=== PATIENT | male | born 1940 | race Caucasian/White ===

== ENCOUNTER → 2018-02-01 12:38 | Outpatient (CLI) | payer MEDICARE, OTHER ==
[2014-04-10 06:58] VITALS: BMI 33.0
[~2018-02-01 12:38] MED LIST: CATAPRES0.2 MG PO; COUMADIN5 MG PO; HUMALOG MIX 50/53 ML; LANTUS SOL100 UNIT/1 SC; LASIX40 MG PO; NORVASC5 MG PO; PRINIVIL10 MG PO; VITAMIN C500 MG PO; VITAMIN D31000 UNI2 PO; ZOCOR40 MG
== END | disposition home or self-care (01) ==
LOC: D.RAD 01-28 11:00 → D.CT 01-28 13:30 → D.RAD 01-28 14:00
DX: M54.5 Low back pain (principal)

== ENCOUNTER → 2019-06-06 07:13 | Day surgery (SDC) | payer MEDICARE, OTHER ==
[~2019-06-06] VITALS: Ht 375.9 cm; Wt 93.4 kg
[~2019-06-06 07:13] MED LIST changes: +AVAPRO150 MG PO; -CATAPRES0.2 MG PO; +CATAPRES0.3 MG PO; +COLCRYS0.6 MG PO; +DURICEF500 MG PO; +HYDROCHLOROTH12.5 M1 PO; +ISOSORBIDE MONO30 M1 PO; +LIPITOR40 MG PO; +METOPROLOL TART50 MG PO; +PLAVIX75 MG PO; +TEMAZEPAM30 MG PO; +TYLENOL W/CODEI1 TAB PO; +ULORIC80 MG PO; +XALATAN 0.0052.5 ML EACH EYE
[2019-06-06 07:50] LABS: HEMATOCRIT 41.7 % (42.0-54.0); HEMOGLOBIN 13.7 g/dL (13.5-17.5); MCH 29.9 pg (26.0-34.0); MCHC 32.9 g/dL (31.0-37.0); MEAN PLATELET VOLUME 8.8 fL (7.4-10.4); NEUTROPHILS 69.9 % (40-80); PLATELET COUNT 220 10x3/uL (130-400); RBC 4.58 10x6/uL (4.20-6.10); RDW 13.3 % (11.5-14.5); WBC 8.1 10x3/uL (4.8-10.8)
[2019-06-06 08:01] LABS: ANION GAP 16.1 mmol/L (8-16); CALCIUM 8.2 mg/dL (8.5-10.1); CARBON DIOXIDE 24.3 mmol/L (21.0-32.0); CREATININE - SERUM 1.4 mg/dL (0.6-1.3); POTASSIUM - SERUM 4.4 mmol/L (3.5-5.1)
[2019-06-06 08:52] VITALS: BP 173/88; Ht 375.9 cm; Wt 93.4 kg
[2019-06-06 09:53] LABS: APTT 34.2 SECONDS (22.8-39.4); INR 1.89 (0.85-1.17); PROTIME 21.4 SECONDS (11.6-15.0)
--- NOTE | 2019-06-06 12:57 | NUR ---
1210 ALL DC CRITERIA MET. TAKEN OUT VIA W/C AND ASSISTED TO CAR WITH DAUGHTER ADVISED TO CALL OR COME BACK IF ANY PROBLEMS.
--- NOTE | 2019-06-07 16:29 | OP ---
PATIENT NAME: REMY JAMES MEDICAL RECORD: [id number] :39 LOCATION:[facility] ADMISSION DATE: SURGEON: LUL JACQUES DO DATE OF OPERATION: 06/06/2019 PROCEDURE PERFORMED: Left index finger proximal interphalangeal joint, irrigation and debridement. 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 INDICATIONS: Mr. James is an 79-year-old male who presented to my office yesterday having months of left index PIP joint pain and tenderness and loss of mobility. It was red and swollen yesterday and he could barely move it. I informed him we could do an I&D and take cultures just to be sure it was not infected, but it had been going on for months. I did not suspect it was, but we would find out. I informed him of the risks including infection, bleeding, loss of use of that index finger and PIP joint, need for further surgery, damage to the digital nerves, losing feeling in his finger and even . He signed the consent. SURGEON: Lul Jacques DO DESCRIPTION OF PROCEDURE: The patient was taken to the operative suite, laid in supine position, given 2 grams of Ancef. He was given TIVA. I then injected the base of the left index finger. After a timeout was performed, everyone was in agreement with the correct side, site, patient and procedure. Base of the index finger with 0.25% Marcaine without epinephrine and injected 1.5 mL in each side. We then prepped and draped the left hand and made an incision. This was painful for him, so I injected 3 mL on each side. The ulnar and radial side of the base of the index finger with 0.25% Marcaine, this anesthetized the finger well. We then opened up the joint down to the extensor tendon and there were large tophi right under the skin. I then did a thorough debridement of the PIP joint, in the joint and on the ulnar and radial sides of the joint getting as much of the tophi out as I possibly could and sent it off for identification, it was white in nature and appeared to be tophi. The site was then irrigated thoroughly and debrided with a rongeur and a [place] as well as pickups. Prior to doing this, I did put a finger tourniquet on from the distal tip and rolled it down to the base and it was on for 30 minutes. This was then removed and then a finger was irrigated and closed by Orestes Virgen, certified surgical speech pathologist assistant with 4-0 nylon in a horizontal mattress fashion. He was then taken to his preoperative room as he did not undergo full anesthesia in stable condition. The site was dressed with Adaptic, 4 x 4s and Kerlix and then a Coban lightly wrapped on the finger. BLOOD LOSS: Minimal. COMPLICATIONS: None. TRANSINT:[id number] Voice Confirmation ID: [id number] DOCUMENT ID: [id number] OPERATIVE REPORT [id number] REMY JAMES,LUL Boyle DO at 1629 CC: [id number] DICTATION DATE: 06/06/19 1049 MONOGRAM OPERATOR: 06/06/19 1129 [facility] 06/06/19 [address] [place] [address]
== END | disposition home or self-care (01) ==
LOC: D.OPS 07:13
PROVIDERS: Anesthesiology; ATTEND Orthopaedic Surgery
DX: M00.9 Pyogenic arthritis, unspecified (principal); E11.9 Type 2 diabetes mellitus without complications; I10 Essential (primary) hypertension; Z95.0 Presence of cardiac pacemaker

== ENCOUNTER 2019-11-01 15:48 | Inpatient (IN) | payer MEDICARE, OTHER ==
[~2019-11-01] VITALS: Ht 172.7 cm; Wt 90.7 kg
--- NOTE | ~2019-11-01 | HEMODYNAMI ---
PATIENT:REMY JAMES MEDICAL RECORD: [id number] : 39 LOCATION:[facility] D.2210 ADMISSION DATE: 11/01/19 Generatedon:11/03/201916:33 Patient name: REMY JAMES Patient #: [id number] SSN: : 1940 Date of study: 11/03/2019 Page: Of Hemodynamic Procedure Report Patient Data Patient Demographics Procedure consent was obtained First Name: REMY Gender: Male Last Name: ERIKA : 1940 Patient #: [id number] Age: 79 year(s) Race: Unknown Additional ID: [id number] Contact details [address]: [address] [place] [address] State: [place] City: [place] Zip code: [address] Past Medical History Allergies: No known allergies Admission Admission Data Admission Date: 11/01/2019 Admission Time: 15:48 Room #: .[facility] Height (in.): 68 BSA: 2.04 (m2) Height (cm.): 172.72 BMI: 30.26 (kg/m2) Weight (lbs.): 199 Weight (kg.): 90.26 Procedure Procedure Types Cath Procedure Peripheral Cath Diagnostic Procedure Live Hanger Peripheral Procedures Abd/Extremity Extremities Left Lower Ext Arterio Procedure Description Procedure Date Procedure Date: 11/03/2019 Procedure Start Time: 15:15 Procedure Staff Name Function Charlie Sherwood MD Performing Physician Lorin Blair RT Automatic Casting Machine Operator Bill MIDDLETON RN Nurse BRIDGET KAUFFMAN RT Scrub Procedure Data Cath Procedure Fluoroscopy Diagnostic fluoroscopy Total fluoroscopy Time: time: 12.3 min 12.3 min Diagnostic fluoroscopy Total fluoroscopy dose: 113 dose: 113 mGy mGy Contrast Material Contrast Material Type Amount (ml) Isovue 300 15 Diagnostic catheters Device Type Used For End Catheter Placement DIAGNOSTIC IMT 5Fr Catheter ([id number]) Procedure Medications Medication Administration Route Dosage Fentanyl I.V. 50 mcg Versed I.V. 1 mg Lidocaine 1% added to field 20 Heparin Flush Bag added to field 2 bags (1000units/500ml NS) Heparin Flush Bag added to field 1 bags (1000units/500ml NS) Fentanyl I.V. 25 mcg Versed I.V. 0.5 mg Heparin Bolus I.V. 5000 units Nitroglycerin IC/IA I.A. 300 mcg Fentanyl I.V. 25 mcg Versed I.V. 0.5 mg Fentanyl I.V. 25 mcg Versed I.V. 0.5 mg Fentanyl I.V. 25 mcg Versed I.V. 0.5 mg Hemodynamics Rest BSA: 2.04 (m2) O2 Consumption: Estimated: 234.91 (ml/min) O2 Consumption indexed : Estimated:115.15 (ml/min/m) Heart Rate: 72 (bpm) Snapshots Pre Cath Intra NCS Post Cath Vital Signs Time Heart Resp SPO2 etCO2 NIBP (mmHg) Rhythm Pain Sedation Rate (ipm) (%) (mmHg) Status Level (bpm) 15:01:46 75 19 100 Measuring NSR 0 (11) 9(A) , No pain 15:02:17 73 19 100 197/76(145) NSR 0 (11) 9(A) , No pain 15:06:54 71 22 99 20.9 192/75(142) NSR 0 (11) 9(A) , No pain 15:11:28 69 20 99 11.2 188/74(128) NSR 0 (11) 9(A) , No pain 15:15:58 69 10 98 26.9 174/67(130) NSR 0 (11) 8(A) , No pain 15:20:29 69 15 96 24.6 162/68(115) NSR 0 (11) 8(A) , No pain 15:24:53 69 15 98 0 162/65(124) NSR 0 (11) 9(A) , No pain 15:29:52 69 16 99 12.7 Measuring NSR 0 (11) 8(A) , No pain 15:30:27 69 11 98 10.4 192/66(126) NSR 0 (11) 8(A) , No pain 15:34:51 69 11 94 27.6 154/62(121) NSR 0 (11) 8(A) , No pain 15:39:15 69 12 99 23.9 155/65(106) NSR 0 (11) 8(A) , No pain 15:43:35 69 26 99 22.4 176/82(130) NSR 0 (11) 8(A) , No pain 15:47:59 69 10 98 26.1 173/73(113) NSR 0 (11) 8(A) , No pain 15:52:18 71 13 98 25.4 149/71(108) NSR 0 (11) 8(A) , No pain 15:56:38 70 12 99 23.1 163/68(111) NSR 0 (11) 8(A) , No pain 16:01:04 69 10 99 20.9 178/72(115) NSR 0 (11) 9(A) , No pain 16:05:32 100 26.1 168/70(134) NSR 0 (11) 8(A) , No pain 16:09:59 71 11 100 26.1 171/69(113) NSR 0 (11) 8(A) , No pain 16:14:58 69 13 100 26.1 Measuring NSR 0 (11) 8(A) , No pain 16:15:28 69 13 100 11.9 178/68(123) NSR 0 (11) 8(A) , No pain 16:19:59 69 14 100 31.3 194/74(130) NSR 0 (11) 8(A) , No pain 16:24:31 69 9 99 27.6 182/69(134) NSR 0 (11) 8(A) , No pain 16:29:01 69 15 100 31.3 186/80(147) NSR 0 (11) 8(A) , No pain Medications Time Medication Route Dose Verified Delivered Reason Notes Effectiveness by by 15:13:22 Fentanyl I.V. 50 Charlie Vinesr for sedation mcg Kaela MIDDLETON MD RN 15:13:32 Versed I.V. 1 mg Charlie Khan for sedation Kaela MIDDLETON MD RN 15:13:48 Lidocaine 1% added 20ml Charlie Khan for local to vial Kaela MIDDLETON anesthetic field MD ALVARENGA 15:13:57 Heparin Flush added 2 Charlie Khan used for Bag to bags Kaela MIDDLETON procedure (1000units/500ml field ROBERTS RN NS) 15:14:02 Heparin Flush added 1 Charlie Guerra used for Bag to bags Kaela Sherwood procedure (1000units/500ml field MD ROBERTS NS) 15:28:26 Fentanyl I.V. 25 Charlie Guerra for sedation mcg Kaela Sherwood MD, MD 15:28:30 Versed I.V. 0.5 Charlie Guerra for sedation mg Kaela Sherwood MD, MD 15:33:38 Heparin Bolus I.V. 5000 Charlie Khan for units Kaela huynh MD RN 15:40:41 Nitroglycerin I.A. 300 Charlie Guerra for IC/IA mcg Kaela chung MD, MD 15:43:46 Fentanyl I.V. 25 Charlie Khan for sedation mcg Kaela MIDDLETON MD, RN 15:43:50 Versed I.V. 0.5 Charlie Khan for sedation mg Kaela MIDDLETON MD RN 16:03:21 Fentanyl I.V. 25 Charlie Khan for sedation mcg Kaela MIDDLETON MD, RN 16:03:24 Versed I.V. 0.5 Charlie Khan for sedation mg Kaela MIDDLETON MD, RN 16:17:26 Fentanyl I.V. 25 Charlie Khan for sedation mcg Kaela MIDDLETON MD, RN 16:17:30 Versed I.V. 0.5 Charlie Khan for sedation mg Kaela MIDDLETON MD rand butter Log Time Note 14:06:08 Patient Height : 68 inches 14:06:13 Patient Weight : 199 lbs 14:58:41 Time tracking: Regular hours (M-F 7:00 - 5:00) 14:59:34 Plan of Care:Hemodynamics will remain stable., Cardiac rhythm will remain stable., Comfort level will be maintained., Respiratory function will remain adequate., Patient/ family verbilizes understanding of procedure., Procedure tolerated without complication., Recovers from procedure without complications.. 14:59:47 Patient received from Med/Surg to IR Alert and oriented. Tansferred to table in Supine position. 14:59:52 Signed procedure consent form obtained from patient. 14:59:55 ECG and BP/O2 sat monitors applied to patient. 14:59:56 Vital chart was started 14:59:57 Baseline sample Acquired. 15:00:00 Full Disclosure recording started 15:00:01 - 15:00:06 H&P Date Dictated: 11/03/2019 Within 30 days and on chart.. 15:00:14 Pre-procedure instructions explained to patient. 15:00:14 Pre-op teaching completed and patient verbalized understanding. 15:00:16 Family in waiting room. 15:00:27 Patient allergic to No known allergies 15:00:32 Patient NPO since Midnight. 15:00:40 Is the patient allergic to Iodine/contrast media? No. 15:00:43 Is patient on blood thinner?No 15:00:46 Patient diabetic? Yes. 15:00:50 - 15:00:51 ----Pre-sedation anethsthesia assessment.---- 15:00:56 Previous problem with sedation/anesthesia? No ? 15:00:59 Snore? Yes 15:01:05 Sleep apnea? No 15:01:08 Deviated septum? No 15:01:10 Opens mouth fully? Yes 15:01:12 Sticks out tongue? 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 No ? 15:01:34 Pre procedure: right dorsailis pedis pulse Doppler 15:01:37 Pre procedure: left dorsailis pedis pulse Doppler 15:01:41 Pre procedure: right posterior tibial pulse Doppler 15:01:46 Pre procedure: left posterior tibial pulse Doppler 15:02:09 Right groin area was prepped with chlora-prep and draped in sterile fashion 15:02:22 4) 15-29 Severley reduced kidney function. 15:03:17 Maximum allowable contrast dose (3.7 X eGFR X 0.75)66 ml. 15:03:30 Fire Safety Assessment: A--An alcohol-based skin anteseptic being used preoperatively., C--Open oxygen or nitrous oxide is being used. 15:09:42 STOPCOCK 3-Way Large Bore ([id number]) opened to sterile field. 15:09:56 TUBING Contrast Injection High Pressure (YUU242J) opened to sterile field. 15:10:08 BENTSON 145cm wire (G81482) opened to sterile field. 15:10:14 Micropuncture VSI 4FR kit opened to sterile field. 15:10:34 SHEATH 5FR Cisco (MAA411) opened to sterile field. 15:10:41 Use device set IR Diagnostic 15:10:43 Tegaderm 4 x 4 (1626W) opened to sterile field. 15:10:44 Sterile Angiographic Pack opened to sterile field. 15:10:45 Bag Decanter (2002) opened to sterile field. 15:10:53 - 15:10:58 Physician arrived 15:10:59 --------ALL STOP TIME OUT------ 15:10:59 Final Timeout: patient, procedure, and site verified with staff and physician. All members of the team are in agreement. 15:13:22 Fentanyl 50 mcg I.V. was administered by Bill MIDDLETON RN; for sedation; Verbal order read back and verified. 15:13:32 Versed 1 mg I.V. was administered by Bill MIDDLETON RN; for sedation; Verbal order read back and verified. 15:13:48 Lidocaine 1% 20ml vial added to field was administered by Bill Solomon RN; for local anesthetic; Verbal order read back and verified. 15:13:57 Heparin Flush Bag (1000units/500ml NS) 2 bags added to field was administered by Bill MIDDLETON RN; used for procedure; Verbal order read back and verified. 15:14:02 Heparin Flush Bag (1000units/500ml NS) 1 bags added to field was administered by Charlie Sherwood MD; used for procedure; Verbal order read back and verified. 15:14:57 Procedure started. 15:15:01 Local anesthetic to right femoral artery with Lidocaine 1% by Charlie Sherwood MD.INITIAL ACCESS ONLY 15:17:51 A DIAGNOSTIC IMT 5Fr Catheter ([id number]) was advanced over the wire an d used for . 15:20:38 SHEATH 6FR Destination (RSR01) opened to sterile field. 15:20:47 PENDLETON 260 wire (Q21014) opened to sterile field. 15:21:58 ROADRUNNER .035 260 glide wire (V95418) opened to sterile field. 15:21:59 CXI SUPPORT .035 135 CM STR catheter (F11652) opened to sterile field. 15:28:26 Fentanyl 25 mcg I.V. was administered by Charlie Sherwood MD; for sedation; Verbal order read back and verified. 15:28:30 Versed 0.5 mg I.V. was administered by Charlie Sherwood MD; for sedation; Verbal order read back and verified. 15:28:49 Baseline sample Acquired. 15:33:38 Heparin Bolus 5000 units I.V. was administered by Bill MIDDLETON RN; fo r anticoagulation; Verbal order read back and verified. 15:38:40 INFLATOR BasixTOUCH (FB9936) opened to sterile field. 15:40:10 CHOICE PT Extra Support J 300cm guide wire ([id number]) opened to steril e field. 15:40:41 Nitroglycerin IC/IA 300 mcg I.A. was administered by Charlie Sherwood MD; for vasodilation; Verbal order read back and verified. 15:41:20 Inflate balloon Inflation number: 1 AOCROSS ELITE 3.5x3.0X210 ([id number]) was prepped and advanced across the Undefined1 , then inflated . 15:43:46 Fentanyl 25 mcg I.V. was administered by Bill MIDDLETON RN; for sedation; Verbal order read back and verified. 15:43:50 Versed 0.5 mg I.V. was administered by Bill MIDDLETON RN; for sedation; Verbal order read back and verified. 15:46:50 Inflate balloon Inflation number: 2 A CHOCOLATE 4.0 x 80 x 135 balloon ([id number]) was prepped and advanced across the Undefined1 , then inflated . 15:50:15 COPILOT Valve Control (1216761) opened to sterile field. 16:03:21 Fentanyl 25 mcg I.V. was administered by Bill MIDDLETON RN; for sedation; Verbal order read back and verified. 16:03:22 Inflate balloon Inflation number: 3 A NANOCROSS ELITE 5MM X 200 X 150 ([id number]) was prepped and advanced across the Undefined1 , then inflated . 16:03:24 Versed 0.5 mg I.V. was administered by Bill MIDDLETON RN; for sedation; Verbal order read back and verified. 16:05:44 Inflate balloon Inflation number: 4 A NANOCROSS ELITE 6 X 150 ([id number]) was prepped and advanced across the Undefined1 , then inflated . 16:11:34 EVERFLEX 6 x 150 Stent ([id number]) was deployed across Undefined2 . 16:12:09 PERCLOSE Proglide 6FR ( 13599368) opened to sterile field. 16:17:26 Fentanyl 25 mcg I.V. was administered by Bill MIDDLETON RN; for sedation; Verbal order read back and verified. 16:17:30 Versed 0.5 mg I.V. was administered by Bill MIDDLETON RN; for sedation; Verbal order read back and verified. 16:22:28 Procedure ended.(Physican Out) 16:30:22 Fluoroscopy time 12.30 minutes. 16:30:33 Fluoroscopy dose: 113 mGy 16:30:33 Flurop Dose total: 113 16:30:44 Contrast amount:Isovue 300 15ml. 16:30:46 Procedure and supply charges have been captured, reviewed, submitted an d are correct. 16:32:55 Vital chart was stopped 16:32:59 Report given to Med/Surg. Intervention Summary Intervention Notes Time ActionType Lesion and Equipment Used Action# Pressure Duration Attributes 15:41:20 Inflate Undefined1 NANOCROSS ELITE 1 0 00:00 balloon 3.0-2.5X210 ([id number]) 15:46:50 Inflate Undefined1 CHOCOLATE 4.0 x 2 0 00:00 balloon 80 x 135 balloon ([id number]) 16:03:22 Inflate Undefined1 NANOCROSS ELITE 3 0 00:00 balloon 4MM X 120 X 150 ([id number]) 16:05:44 Inflate Undefined1 NANOCROSS ELITE 3 4 0 00:00 balloon X 150 ([id number]) 16:11:34 Deploy self Undefined2 EVERFLEX 6 x 150 1 expanding Stent stent ([id number]) Device Usage Item Name Manufacture Quantity Catalog Number Hospital Part Curr ent Minimal Lot# / Charge Number Stock Stock Serial# Code STOPCOCK 3-Way Cook Medical 1 [id number] 1300 9996 45 5 Large Bore ([id number]) TUBING Contrast Merit 1 [id number] 570270 825072 3016 97 5 Injection High Medical Pressure (ALL091P) BENTSON 145cm [employer] 1 M90076 405737 6276 44 5 wire (Y86605) Micropuncture VSI VSI VASCULAR 1 7266V 658695 6138 37 5 4FR kit SOLUTIONS SHEATH 5FR Terumo 1 ZJH844 858222 458959 1142 61 5 Cisco (HXC872) Tegaderm 4 x 4 3M 1 1626W 546031 662497 3022 51 5 (1626W) Sterile Cardinal 1 [id number] 610191 1573 64 5 Angiographic Pack Health Bag Decanter Microtek 1 2001S 798701 09028 9839 07 5 (2001S) [place] [employer] DIAGNOSTIC IMT [place] 1 [id number] 287249 484255 9947 3 5 [id number] 5Fr Catheter Scientific ([id number]) SHEATH 6FR Terumo 1 RSR01 308342 37421 9994 74 5 Destination (RSR01) PENDLETON 260 wire [employer] 1 J98241 050326 49687 9994 00 5 ([id number]) ROADRUNNER .035 [employer] 1 H25539 705533 139544 6269 27 5 [id number] 260 glide wire (F45935) CXI SUPPORT .035 [employer] 1 W85255 745293 353025 0773 54 5 [id number] 135 CM STR catheter (S49826) INFLATOR Merit 1 QF0085 999628 440434 8022 84 5 EQUIP Advantage (UJ6567) CHOICE PT Extra [place] 1 [id number] 116621 667561 6089 72 5 Support J 300cm Scientific guide wire ([id number]) NANOCROSS ELITE Medtronic 1 [id number] 957009 1228 94 1 3.0-2.5X210 ([id number]) CHOCOLATE 4.0 x Medtronic 1 [id number] O 284760 007946 4780 91 5 80 x 135 balloon TW ([id number]) COPILOT Valve Hernandez 1 4152125 331004 243098 0438 21 5 Control (4338980) Vascular NANOCROSS ELITE Medtronic 1 [id number] 857406 3170 89 1 4MM X 120 X 150 ([id number]) NANOCROSS ELITE 3 Medtronic 1 [id number] 571910 12824 9999 93 1 X 150 ([id number]) EVERFLEX 6 x 150 Medtronic 1 [id number] 403933 737271 2732 95 5 [id number] Stent [id number] ([id number]) PERCLOSE Proglide Hernandez 1 65808-647 893720 737141 9203 92 5 6FR ( [id number]) Vascular Signature Audit Mason Stage Time Signature Unsigned Intra-Procedure 11/03/2019 Lorin Blair 4:33:19 PM RT(R) [facility] [address] [place] [address]
[~2019-11-01 15:48] MED LIST changes: -COUMADIN5 MG PO; +WARFARIN SODIU2.5 MG PO
[2019-11-01 17:57] VITALS: BP 184/82
[2019-11-01 18:23] LABS: BASOPHILS 0.4 % (0-2); EOSINOPHILS 3.3 % (0-7); HEMATOCRIT 39.1 % (42.0-54.0); HEMOGLOBIN 12.6 g/dL (13.5-17.5); LYMPHOCYTES 19.5 % (15-50); MCH 30.5 pg (26.0-34.0); MCHC 32.2 g/dL (31.0-37.0); MCV 94.7 fL (80.0-100.0); MEAN PLATELET VOLUME 9.4 fL (7.4-10.4); MONOCYTES 12.4 % (2-11); NEUTROPHILS 64.4 % (40-80); RBC 4.13 10x6/uL (4.20-6.10); RDW 13.3 % (11.5-14.5); WBC 5.5 10x3/uL (4.8-10.8)
[2019-11-01 18:34] LABS: ANION GAP 5.9 mmol/L (8-16); CALCIUM 8.5 mg/dL (8.5-10.1); CARBON DIOXIDE 31.4 mmol/L (21.0-32.0); CREATININE - SERUM 2.5 mg/dL (0.6-1.3); POTASSIUM - SERUM 4.3 mmol/L (3.5-5.1)
[2019-11-01 18:36] LABS: PLATELET COUNT 169 10x3/uL (130-400)
[2019-11-01 18:41] LABS: ALBUMIN 2.9 g/dL (3.4-5.0); BILIRUBIN - TOTAL 0.33 mg/dL (0.2-1.3); PROTEIN - SERUM 5.9 g/dL (6.4-8.2); URIC ACID 3.6 mg/dL (2.6-7.2)
[2019-11-01 18:44] LABS: INR 1.22 (0.85-1.17); PROTIME 15.3 SECONDS (11.6-15.0)
[2019-11-01 20:00] VITALS: BP 215/82
[2019-11-02 01:06] LABS: NITRITE NEGATIVE (NEGATIVE)
[2019-11-02 01:07] LABS: BILIRUBIN NEGATIVE (NEGATIVE); KETONE NEGATIVE (NEGATIVE); UROBILINOGEN NORMAL (NORMAL)
[2019-11-02 04:00] VITALS: BP 182/65
--- NOTE | 2019-11-02 07:58 | NUR ---
PT RESTING IN BED. RESP EVEN AND UNLABORED. DENIES PAIN AT THIS TIME. DISCUSSED POSSIBLE PROCEDURE THIS AM AND NEED TO BE NPO. PT VOICES UNDERSTANDING. INFORMED PT THAT STAFF WOULD NOTIFY HIM WITH ANY CHANGES IN PROCEDURE. PT VOICES UNDERSTANDING. IV TO LEFT FOREARM WITH NS @ 75ML/HR INFUSING VIA PUMP. SITE WITHOUT REDNESS OR EDEMA. DENIES FURTHER NEEDS AT THIS TIME. CL WITHIN REACH. ENCOURAGED TO CALL WITH NEEDS. CONTINUE POC
--- NOTE | 2019-11-02 08:15 | NUR ---
STAFF WAS CONTACTED BY KANE AND INFORMED PROCEDURE WAS ON HOLD DUE TO USE OF PLAVIX AND COUMADIN. VOICED TO RESTART DIET, HOLDING PLAVIX AND COUMADIN UNTIL FURTHER NOTICE
[2019-11-02 09:48] VITALS: BP 207/78
[2019-11-02 10:17] LABS: ANION GAP 8.4 mmol/L (8-16); CALCIUM 8.6 mg/dL (8.5-10.1); CARBON DIOXIDE 28.2 mmol/L (21.0-32.0); CREATININE - SERUM 2.4 mg/dL (0.6-1.3); PHOSPHOROUS 3.2 mg/dL (2.5-4.9); POTASSIUM - SERUM 4.6 mmol/L (3.5-5.1)
[2019-11-02 10:19] LABS: INR 1.18 (0.85-1.17); PROTIME 14.9 SECONDS (11.6-15.0)
[2019-11-02 10:20] LABS: APTT 28.5 SECONDS (22.8-39.4)
[2019-11-02 10:23] LABS: BASOPHILS 0.6 % (0-2); EOSINOPHILS 3.5 % (0-7); HEMATOCRIT 42.2 % (42.0-54.0); IMMATURE GRANULOCYTES 0.1 % (0-5); LYMPHOCYTES 17.9 % (15-50); MCH 30.9 pg (26.0-34.0); MCHC 33.2 g/dL (31.0-37.0); MCV 93.2 fL (80.0-100.0); MEAN PLATELET VOLUME 9.8 fL (7.4-10.4); MONOCYTES 11.5 % (2-11); NEUTROPHILS 66.4 % (40-80); PLATELET COUNT 174 10x3/uL (130-400); RBC 4.53 10x6/uL (4.20-6.10); RDW 13.2 % (11.5-14.5)
[2019-11-02 10:29] LABS: WBC 6.9 10x3/uL (4.8-10.8)
[2019-11-02 12:49] VITALS: BP 160/78
[2019-11-02 12:58] VITALS: BP 212/74
[2019-11-02 13:01] VITALS: Ht 172.7 cm; Wt 90.7 kg
[2019-11-02 13:02] LABS: HEMATOCRIT 40.3 % (42.0-54.0); HEMOGLOBIN 13.4 g/dL (13.5-17.5); MCH 31.1 pg (26.0-34.0); MCHC 33.3 g/dL (31.0-37.0); MCV 93.5 fL (80.0-100.0); MEAN PLATELET VOLUME 9.7 fL (7.4-10.4); RBC 4.31 10x6/uL (4.20-6.10); RDW 13.2 % (11.5-14.5); WBC 6.8 10x3/uL (4.8-10.8)
[2019-11-02 13:16] LABS: APTT 29.8 SECONDS (22.8-39.4); INR 1.3 (0.85-1.17); PROTIME 16.1 SECONDS (11.6-15.0)
--- NOTE | 2019-11-02 14:10 | NUR ---
IV SITED TO RIGHT WRIST. 20G X 1 STICK, GOOD BLOOD RETURN, EASILY FLUSHED. PT LIZZY WELL
[2019-11-02 17:23] VITALS: BP 160/69
[2019-11-02 20:00] VITALS: BP 107/65
[2019-11-03] VITALS (9 sets, daily range): BP systolic 156–203; BP diastolic 64–76
--- NOTE | 2019-11-03 04:12 | NUR ---
I have reviewed this patient and I concur with the Shift Assessment completed by the Licensed Practical Nurse today this shift.
[2019-11-03 04:43] LABS: BASOPHILS 0.3 % (0-2); EOSINOPHILS 2.9 % (0-7); HEMATOCRIT 39.7 % (42.0-54.0); HEMOGLOBIN 13.1 g/dL (13.5-17.5); IMMATURE GRANULOCYTES 0.1 % (0-5); LYMPHOCYTES 21.2 % (15-50); MCH 30.3 pg (26.0-34.0); MCV 91.7 fL (80.0-100.0); MEAN PLATELET VOLUME 9.7 fL (7.4-10.4); MONOCYTES 10.4 % (2-11); NEUTROPHILS 65.1 % (40-80); PLATELET COUNT 178 10x3/uL (130-400); RBC 4.33 10x6/uL (4.20-6.10); RDW 13.2 % (11.5-14.5)
[2019-11-03 04:58] LABS: INR 1.17 (0.85-1.17); PROTIME 14.9 SECONDS (11.6-15.0)
[2019-11-03 05:01] LABS: APTT 41.1 SECONDS (22.8-39.4)
[2019-11-03 05:08] LABS: ANION GAP 12.4 mmol/L (8-16); CALCIUM 8.3 mg/dL (8.5-10.1); CARBON DIOXIDE 24.6 mmol/L (21.0-32.0); CREATININE - SERUM 2.7 mg/dL (0.6-1.3); MAGNESIUM - SERUM 1.9 mg/dL (1.8-2.4); PHOSPHOROUS 3.4 mg/dL (2.5-4.9)
--- NOTE | 2019-11-03 07:00 | NUR ---
A&O RESTING IN BED WITH EYES OPEN. NO C/O PAIN. NO S/S OF ACUTE DISTRESS NOTED. IV TO LEFT WRIST, HEPARIN DRIP @ 9. IV TO RIGHT HAND, NS INFUSING @ KVO. SITES PATENT WITHOUT REDNESS OR SWELLING. NPO FOR CT SCAN TODAY. LEFT FOOT RED. SCABS/SORES TO LEFT FOOT. DENIES ANY NEEDS AT THIS TIME. CALL LIGHT IN REACH. WILL CONTINUE TO MONITOR.
--- NOTE | 2019-11-03 13:33 | NUR ---
Nutrition follow-up: Pt reports he has had DMT2 for 20 years. Pt states glucose usually under better control. Pt vey unhappy at this time 2/2 NPO; shaking from low BS he states. RDN provided pt with printed diet information. RDN will be available for questions if needed. Following.
--- NOTE | 2019-11-03 14:05 | NUR ---
PATIENT LYING IN BED WITH FAMILY AT BEDSIDE. DENIES PAIN OR NEEDS.
--- NOTE | 2019-11-03 18:09 | NUR ---
PATIENT'S APTT IS 173. PUT HEPARIN ON HOLD FOR 60 MINUTES AND THEN WILL TURN DOWN FROM 9 TO 6.
--- NOTE | 2019-11-03 18:20 | NUR ---
RESTING IN BED WITH EYES OPEN. NO C/O PAIN. NO S/S OF ACUTE DISTRESS NOTED. DENIES ANY NEEDS AT THIS TIME. CALL LIGHT IN REACH. WILL CONTINUE TO MONITOR.
--- NOTE | 2019-11-04 00:23 | NUR ---
I have reviewed this patient and I concur with the Shift Assessment completed by the Licensed Practical Nurse today this shift.
[2019-11-04 04:00] VITALS: BP 160/60
[2019-11-04 06:18] LABS: BASOPHILS 0.2 % (0-2); EOSINOPHILS 0 % (0-7); HEMATOCRIT 37.1 % (42.0-54.0); HEMOGLOBIN 11.9 g/dL (13.5-17.5); IMMATURE GRANULOCYTES 0.2 % (0-5); LYMPHOCYTES 10.2 % (15-50); MCHC 32.1 g/dL (31.0-37.0); MCV 93.5 fL (80.0-100.0); MEAN PLATELET VOLUME 9.5 fL (7.4-10.4); MONOCYTES 9.1 % (2-11); NEUTROPHILS 80.3 % (40-80); PLATELET COUNT 167 10x3/uL (130-400); RBC 3.97 10x6/uL (4.20-6.10); RDW 13.7 % (11.5-14.5); WBC 8.2 10x3/uL (4.8-10.8)
[2019-11-04 07:02] LABS: ANION GAP 11.8 mmol/L (8-16); CALCIUM 8.5 mg/dL (8.5-10.1); CARBON DIOXIDE 23.4 mmol/L (21.0-32.0); CREATININE - SERUM 2.6 mg/dL (0.6-1.3); MAGNESIUM - SERUM 1.9 mg/dL (1.8-2.4); PHOSPHOROUS 3.3 mg/dL (2.5-4.9); POTASSIUM - SERUM 4.2 mmol/L (3.5-5.1)
[2019-11-04 09:30] VITALS: BP 159/55
--- NOTE | 2019-11-04 10:44 | NUR ---
I have reviewed this patient and I concur with the Shift Assessment completed by the Licensed Practical Nurse today this shift.
[2019-11-04 13:23] VITALS: BP 136/49
[2019-11-04 16:23] VITALS: BP 94/55
[2019-11-04 20:00] VITALS: BP 172/54
[2019-11-05 00:10] VITALS: BP 158/52
--- NOTE | 2019-11-05 02:39 | NUR ---
I have reviewed this patient and I concur with the Shift Assessment completed by the Licensed Practical Nurse today this shift.
[2019-11-05 03:18] LABS: BASOPHILS 0.1 % (0-2); EOSINOPHILS 1.6 % (0-7); HEMATOCRIT 34.3 % (42.0-54.0); HEMOGLOBIN 11.1 g/dL (13.5-17.5); IMMATURE GRANULOCYTES 0.1 % (0-5); LYMPHOCYTES 17.3 % (15-50); MCH 30.5 pg (26.0-34.0); MCHC 32.4 g/dL (31.0-37.0); MCV 94.2 fL (80.0-100.0); MEAN PLATELET VOLUME 9.5 fL (7.4-10.4); MONOCYTES 11.2 % (2-11); NEUTROPHILS 69.7 % (40-80); PLATELET COUNT 142 10x3/uL (130-400); RBC 3.64 10x6/uL (4.20-6.10); RDW 13.7 % (11.5-14.5); WBC 6.9 10x3/uL (4.8-10.8)
[2019-11-05 03:30] LABS: ANION GAP 8.9 mmol/L (8-16); CALCIUM 8.5 mg/dL (8.5-10.1); CARBON DIOXIDE 24.1 mmol/L (21.0-32.0); CREATININE - SERUM 2.5 mg/dL (0.6-1.3); MAGNESIUM - SERUM 1.9 mg/dL (1.8-2.4); PHOSPHOROUS 3.3 mg/dL (2.5-4.9)
[2019-11-05 04:30] VITALS: BP 166/62
--- NOTE | 2019-11-05 07:58 | NUR ---
RESTING IN BED, NO DISTRESS NOTED, CONFUSED, C/O PAIN, BED ALARM ON
[2019-11-05 09:49] VITALS: BP 178/60
--- NOTE | 2019-11-05 11:50 | NUR ---
ADJUSTED HEPARIN PER PROTOCOL
[2019-11-05 12:15] VITALS: BP 149/53
[2019-11-05 17:21] VITALS: BP 164/66
--- NOTE | 2019-11-05 18:45 | NUR ---
BOLUS OF HEPARIN GIVEN AND RATE INCREASED BY 200, WILL REDRAW LABS AT [id number]
[2019-11-05 20:00] VITALS: BP 153/51
[2019-11-06 00:05] VITALS: BP 176/57
[2019-11-06 02:35] LABS: BASOPHILS 0.3 % (0-2); EOSINOPHILS 2.2 % (0-7); HEMATOCRIT 33.5 % (42.0-54.0); HEMOGLOBIN 10.6 g/dL (13.5-17.5); IMMATURE GRANULOCYTES 0.3 % (0-5); LYMPHOCYTES 12.5 % (15-50); MCH 30.6 pg (26.0-34.0); MCHC 31.6 g/dL (31.0-37.0); MEAN PLATELET VOLUME 9.7 fL (7.4-10.4); MONOCYTES 11.2 % (2-11); NEUTROPHILS 73.5 % (40-80); PLATELET COUNT 149 10x3/uL (130-400); RBC 3.46 10x6/uL (4.20-6.10); RDW 13.6 % (11.5-14.5)
[2019-11-06 02:36] LABS: MCV 96.8 fL (80.0-100.0); WBC 8.8 10x3/uL (4.8-10.8)
[2019-11-06 02:39] LABS: INR 1.25 (0.85-1.17); PROTIME 15.6 SECONDS (11.6-15.0)
[2019-11-06 02:46] LABS: APTT 103.1 SECONDS (22.8-39.4)
[2019-11-06 02:50] LABS: CALCIUM 7.7 mg/dL (8.5-10.1); CARBON DIOXIDE 24.6 mmol/L (21.0-32.0); CREATININE - SERUM 2.9 mg/dL (0.6-1.3); MAGNESIUM - SERUM 1.7 mg/dL (1.8-2.4); PHOSPHOROUS 3.1 mg/dL (2.5-4.9); POTASSIUM - SERUM 3.6 mmol/L (3.5-5.1)
[2019-11-06 04:30] VITALS: BP 170/61
--- NOTE | 2019-11-06 05:09 | NUR ---
I have reviewed this patient and I concur with the Shift Assessment completed by the Licensed Practical Nurse today this shift.
[2019-11-06 08:44] VITALS: BP 171/51
[2019-11-06 08:48] LABS: ANION GAP 13.1 mmol/L (8-16); CALCIUM 8.6 mg/dL (8.5-10.1); CREATININE - SERUM 2.8 mg/dL (0.6-1.3); POTASSIUM - SERUM 4.1 mmol/L (3.5-5.1)
[2019-11-06 13:30] VITALS: BP 140/51
--- NOTE | 2019-11-06 14:28 | NUR ---
Rehab Prescreening Consult recieved and the chart has been reviewed. He is a good ARU candidate when he is medically stable and able to participate in the 3 hrs of therapy every day 5 days a week. Jazmin Lazar RN Clinical liaison, Rehab
[2019-11-06 17:37] VITALS: BP 165/61
[2019-11-06 20:00] VITALS: BP 158/51
--- NOTE | 2019-11-06 20:00 | NUR ---
SUPINE IN BED, EYES CLOSED, RESPIRATIONS EVEN/NON-LABORED. NO S/SX OF DISTRESS, CTM.
[2019-11-07] VITALS: BP 170/57
--- NOTE | 2019-11-07 02:54 | NUR ---
I have reviewed this patient and I concur with the Shift Assessment completed by the Licensed Practical Nurse today this shift.
[2019-11-07 04:03] VITALS: BP 189/68
[2019-11-07 05:46] LABS: BASOPHILS 0.1 % (0-2); EOSINOPHILS 0.1 % (0-7); HEMATOCRIT 36.7 % (42.0-54.0); HEMOGLOBIN 11.9 g/dL (13.5-17.5); IMMATURE GRANULOCYTES 0.4 % (0-5); LYMPHOCYTES 7.9 % (15-50); MCH 30.4 pg (26.0-34.0); MCHC 32.4 g/dL (31.0-37.0); MEAN PLATELET VOLUME 10.3 fL (7.4-10.4); MONOCYTES 9.7 % (2-11); NEUTROPHILS 81.8 % (40-80); RBC 3.92 10x6/uL (4.20-6.10); RDW 13.7 % (11.5-14.5)
[2019-11-07 06:19] LABS: ALBUMIN 2.7 g/dL (3.4-5.0); ANION GAP 13.7 mmol/L (8-16); BILIRUBIN - TOTAL 0.57 mg/dL (0.2-1.3); CARBON DIOXIDE 23.2 mmol/L (21.0-32.0); CREATININE - SERUM 3.4 mg/dL (0.6-1.3); POTASSIUM - SERUM 3.9 mmol/L (3.5-5.1); PROTEIN - SERUM 6.4 g/dL (6.4-8.2)
[2019-11-07 06:26] LABS: MCV 93.6 fL (80.0-100.0); PLATELET COUNT 202 10x3/uL (130-400); WBC 15.1 10x3/uL (4.8-10.8)
--- NOTE | 2019-11-07 09:28 | NUR ---
OT NOTE: (DOS 11/06/19) PT COMPLETED FACE AND HAND HYGIENE WITH SETUP. PT COMPLETED UE AROM AX WITH FUNCTIONAL TASKS. PT STATED HE HAS PAIN IN L HEEL. [phone] THANK YOU,MAY HUFF
[2019-11-07 10:04] VITALS: BP 190/58
--- NOTE | 2019-11-07 11:00 | NUR ---
ASSESSMENT PER FLOW SHEET. PATIENT IS WITHOUT DISTRESS. JENNIFER MAT FOR FALL PREVENTION.DOOR OPEN.
[2019-11-07 11:37] LABS: INR 1.14 (0.85-1.17); PROTIME 14.6 SECONDS (11.6-15.0)
--- NOTE | 2019-11-07 11:57 | NUR ---
OT NOTE: EXTENSIVE TIME SPENT WITH PT TODAY. PT WANTING TO GET TO TOILET VS USING BED URBANO. ASKED PT HOW HE THOUGHT HE WOULD GET TO TOILET WHEN HE WAS STILL UNABLE TO TOLERATE ANYTHING TOUCHING HIS FOOT??? FINALLY FOUND COMMODE; ASSISTED PT TO EOB WITH MAX ASSIST X 2; GOOD STATIC SITTING BALANCE ON EOB; EDUCATION ON USE OF ARMS AND R LE FOR WT BEARING WITH ATTEMPTS TO STAND; SIT TO STAND WITH MAX ASSIST X 2; PT GRIMACING WITH PAIN HE WAS UNABLE TO KEEP L FOOT IN NWB. TRANSFERRED TO [facility] WITH MAX ASSIST X 2. PROVIDED WASH CLOTH FOR WASHING FACE, HANDS, AND ARMS.. CONTINUED TREMORS THROUGHOUT; MOD ASSIST REQUIRED FOR REMAINDER OF SPONGE BATH; MAX ASSIST WITH TOILET HYGIENE; MAX X 2 FOR TRANSFER BACK TO BED AND LE MGMT FOR SIT TO SUPINE. [phone]
[2019-11-07 13:46] VITALS: BP 152/59
--- NOTE | 2019-11-07 14:40 | NUR ---
OT NOTE: PT COMPLETED SUPINE TO SIT WITH MAX A 2. PT COMPLETED SIT TO STAND WITH WALKER REQUIRED MAX A X2. PT COMPLETED TSF TO BSC WITH MAX A X2. PT COMPLETED GARMENT MANAGEMENT WITH MAX A. PT COMPLETED TOILET HYGIENE WITH TOTAL A. [phone] THANK YOU,MAY HUFF
[2019-11-07 18:33] VITALS: BP 156/57
[2019-11-07 20:00] VITALS: BP 147/53
[2019-11-08] VITALS: BP 168/61
--- NOTE | 2019-11-08 00:10 | NUR ---
I have reviewed this patient and I concur with the Shift Assessment completed by the Licensed Practical Nurse today this shift.
--- NOTE | 2019-11-08 03:00 | NUR ---
SUPINE IN BED, A&O X 4. PT REPORTS INCONTINENT VOID. BED BATH AND FULL GOWN/LINEN CHANGE PERFORMED. REPORTS PAIN OF 6/10 TO BILAT LOWER EXTREMETIES. NO FURTHER NEEDS VOICED, CTM.
[2019-11-08 04:00] VITALS: BP 178/56
[2019-11-08 06:18] LABS: BASOPHILS 0.2 % (0-2); EOSINOPHILS 1.1 % (0-7); HEMATOCRIT 37.2 % (42.0-54.0); HEMOGLOBIN 12.2 g/dL (13.5-17.5); IMMATURE GRANULOCYTES 0.3 % (0-5); LYMPHOCYTES 8.3 % (15-50); MCH 30.3 pg (26.0-34.0); MCHC 32.8 g/dL (31.0-37.0); MCV 92.3 fL (80.0-100.0); MEAN PLATELET VOLUME 10.1 fL (7.4-10.4); MONOCYTES 9.8 % (2-11); NEUTROPHILS 80.3 % (40-80); PLATELET COUNT 184 10x3/uL (130-400); RBC 4.03 10x6/uL (4.20-6.10); RDW 13.4 % (11.5-14.5)
[2019-11-08 06:27] LABS: WBC 9.8 10x3/uL (4.8-10.8)
[2019-11-08 06:40] LABS: INR 1.16 (0.85-1.17); PROTIME 14.7 SECONDS (11.6-15.0)
[2019-11-08 07:25] LABS: ALBUMIN 2.6 g/dL (3.4-5.0); ANION GAP 13.5 mmol/L (8-16); BILIRUBIN - TOTAL 0.35 mg/dL (0.2-1.3); CALCIUM 8.6 mg/dL (8.5-10.1); CARBON DIOXIDE 21.3 mmol/L (21.0-32.0); CREATININE - SERUM 3.4 mg/dL (0.6-1.3); POTASSIUM - SERUM 3.8 mmol/L (3.5-5.1); PROTEIN - SERUM 5.4 g/dL (6.4-8.2)
[2019-11-08 09:55] VITALS: BP 201/62
[2019-11-08] MEDS ORDERED: ROCEPHIN 1 GM/D51 G1 IV (11:10)
[2019-11-08] MEDS ORDERED: Vibramycin 100 MG/D5 IV (11:10)
[2019-11-08] MEDS ORDERED: PROCARDIA XL PO (11:11)
[2019-11-08] MEDS ORDERED: CARDURA1 MG PO (11:11)
[2019-11-08] MEDS ORDERED: METOPROLOL TART50 MG PO (11:11)
[2019-11-08] MEDS ORDERED: ACETAMINOPHEN325 MG PO (11:12)
[2019-11-08] MEDS ORDERED: NEURONTIN 300300 MG PO (11:29)
[2019-11-08] MEDS ORDERED: HYDROCODON-ACE1 EAC7 PO (11:30)
--- NOTE | 2019-11-08 12:58 | NUR ---
Nutrition follow-up: Diet: Renal ADA PO intake ~50% of average of last 3 meals Labs reviewed Wt: 199# Pt with increased pain in his feet. To rehab soon RDN following.
[2019-11-08 13:46] VITALS: BP 165/57
--- NOTE | 2019-11-08 16:56 | NUR ---
CALLED REPORT TO MAHSA IN REHAB, PT TO GO TO ROOM 1118B. ASKED THAT PATIENT BE BROUGHT DOWN AFTER DINNER. NO OTHER NEEDS AT THIS TIME
== END 2019-11-08 17:33 | DRG 629 ==
LOC: D.SDCHOLD 15:48 → D.MS 15:48
PROVIDERS: Family Medicine; Family Medicine Adult Medicine; Internal Medicine; Radiology Diagnostic Radiology; Radiology Vascular & Interventional Radiology; ADMIT Family Medicine; ATTEND Family Medicine
PROC: 047L3DZ Dilation of Left Femoral Artery with Intraluminal Device, Percutaneous Approach (ICD-10-PCS; principal; 2019-11-03 15:23)
DX: E11.628 Type 2 diabetes mellitus with other skin complications (principal); L03.116 Cellulitis of left lower limb; N18.4 Chronic kidney disease, stage 4 (severe); N17.9 Acute kidney failure, unspecified; E11.22 Type 2 diabetes mellitus with diabetic chronic kidney disease; I12.9 Hypertensive chronic kidney disease with stage 1 through stage 4 chronic kidney disease, or unspecified chronic kidney disease; E78.5 Hyperlipidemia, unspecified; Z79.01 Long term (current) use of anticoagulants; G47.00 Insomnia, unspecified; G89.29 Other chronic pain; D64.9 Anemia, unspecified

== ENCOUNTER 2019-11-08 17:52 | Inpatient (IN) | payer MEDICARE, OTHER ==
[~2019-11-08] VITALS: Ht 172.7 cm; Wt 90.7 kg
--- NOTE | 2019-11-08 17:45 | NUR ---
RECIEVED PER BED TO ROOM 1111T;ORIENTED TO ROOM AND SURROUNDINGS.CL IN REACH.
[~2019-11-08 17:52] MED LIST changes: +ACETAMINOPHEN325 MG PO; +CARDURA1 MG PO; +HYDROCODON-ACE1 EAC7 PO; +NEURONTIN 300300 MG PO; +PROCARDIA XL PO; +ROCEPHIN 1 GM/D51 G1 IV; +Vibramycin 100 MG/D5 IV
--- NOTE | 2019-11-08 18:35 | NUR ---
RECEIVED REPORT. PT LYING IN BED EYES CLOSED RESTING. HOB ELEVATED. EASILY AROUSED WITH VERBAL STIMULI. ALERT AND ORIENTED X3. ORIENTED TO UNIT, REMOTE USE AND CALL LIGHT FUNCTIONS, BATHROOM, AND EXPECTATIONS FOR FIRST DAY OF REHAB. PT VOICES NO CONCERNS AT THIS TIME. DENIES ANY PAIN OR NEEDS. LEFT AND RIGHT WRIST IV SALINE LOCKED. NO REDNESS OR SWELLING. DRESSING INTACT. PT CONTINUES ON 3L VIA NC. VS STABLE. RIGHT GROIN BRUISING NOTED. LEFT FOOT REDNESS, SWELLING, AND TENDER TO TOUCH. ELEVATED LEFT FOOT ON PILLOW FOR COMFORT. BUTTOCKS REDDENED BLANCHES. SCROTUM SLIGHTLY REDDENED AND TENDER. BUTTPASTE APPLIED TO BOTH BUTTOCK AND SCROTUM. CALL LIGHT AND WATER WITHIN REACH. BED ALARM ON. FALL PRECAUTIONS IN PLACE. CPOC
--- NOTE | 2019-11-08 23:39 | NUR ---
PT LYING IN BED EYES CLOSED RESTING. RR EVEN AND UNLABORED. CALL LIGHT WITHIN REACH. FALL PRECAUTIONS IN PLACE. CPOC
[2019-11-08 23:57] VITALS: BP 196/68; BMI 30.4
--- NOTE | 2019-11-09 03:10 | NUR ---
PT LYING IN BED EYES CLOSED RESTING. RR EVEN AND UNLABORED. CALL LIGHT WITHIN REACH. CPOC
--- NOTE | 2019-11-09 05:17 | NUR ---
PT LYING IN BED EYES CLOSED RESTING. NO ACUTE CHANGES IN CONDITION THIS SHIFT. EARLY AM MEDS ADMININSTERED, TOILETING OFFERED. PT DENIES ANY NEEDS OR PAIN. CALL LIGHT AND WATER WITHIN REACH. FALL PRECAUTIONS IN PLACE. CPOC
[2019-11-09 06:45] LABS: BASOPHILS 0.3 % (0-2); EOSINOPHILS 1.8 % (0-7); HEMATOCRIT 34.9 % (42.0-54.0); HEMOGLOBIN 11.6 g/dL (13.5-17.5); IMMATURE GRANULOCYTES 0.3 % (0-5); MCH 30.5 pg (26.0-34.0); MCHC 33.2 g/dL (31.0-37.0); MCV 91.8 fL (80.0-100.0); MEAN PLATELET VOLUME 9.9 fL (7.4-10.4); NEUTROPHILS 77.6 % (40-80); PLATELET COUNT 201 10x3/uL (130-400); RDW 13.4 % (11.5-14.5)
[2019-11-09 07:05] LABS: ANION GAP 15.4 mmol/L (8-16); CALCIUM 8.7 mg/dL (8.5-10.1); CARBON DIOXIDE 21.6 mmol/L (21.0-32.0); CREATININE - SERUM 3.2 mg/dL (0.6-1.3)
[2019-11-09 08:00] VITALS: BP 144/54
--- NOTE | 2019-11-09 08:00 | NUR ---
SHIFT ASSMT COMPLETED.LEFT FOOT/TOES RED,INFLAMMED LOOKING.1-2+ EDEMA.BREAKFAST GIVEN AFTER ASSISTING WITH THERAPY UP IN WC WITH SLIDEBOARD +2 ASSIST IN CHAIR.CL IN REACH.
[2019-11-09 08:04] VITALS: Ht 172.7 cm; Wt 90.7 kg
--- NOTE | 2019-11-09 10:48 | NUR ---
PATIENT IS ADMITTED TO REHAB FROM ACUTE FLOOR. HIS PCP IS DR. MARQUEZ. DISCHARGE PLANS ARE FOR PATIENT TO RETURN HOME WITH HIS SPOUSE. WILL CONTINUE TO FOLLOW WITH PATIENT.
--- NOTE | 2019-11-09 12:00 | NUR ---
EATING LUNCH AT BEDSIDE WHILE UP IN WC.
--- NOTE | 2019-11-09 12:40 | NUR ---
TIRED.TAKEN BACK TO BED.
[2019-11-09 17:02] LABS: INR 1.31 (0.85-1.17); PROTIME 16.2 SECONDS (11.6-15.0)
[2019-11-09 20:48] VITALS: BP 140/47
--- NOTE | 2019-11-10 04:15 | NUR ---
HELD BLOOD PRESSURE MEDICATIONS DO TO BP BEING 116/44. PT DROWSY, BUT WOULD WAKE UP AND ANSWER QUESTIONS APPROPRIATELY. RESTED THROUGH THE NIGHT IN BED WITH EYES CLOSED. CALL LIGHT IN REACH, BED IN LOWEST POSITION, WILL CONTINUE TO MONITOR
[2019-11-10 07:52] LABS: BASOPHILS 0.4 % (0-2); EOSINOPHILS 3.3 % (0-7); HEMATOCRIT 33.9 % (42.0-54.0); HEMOGLOBIN 11.3 g/dL (13.5-17.5); IMMATURE GRANULOCYTES 0.2 % (0-5); LYMPHOCYTES 12.9 % (15-50); MCH 30.6 pg (26.0-34.0); MCHC 33.3 g/dL (31.0-37.0); MCV 91.9 fL (80.0-100.0); MEAN PLATELET VOLUME 9.8 fL (7.4-10.4); MONOCYTES 10.8 % (2-11); NEUTROPHILS 72.4 % (40-80); PLATELET COUNT 200 10x3/uL (130-400); RBC 3.69 10x6/uL (4.20-6.10); RDW 13.3 % (11.5-14.5); WBC 8.2 10x3/uL (4.8-10.8)
[2019-11-10 08:00] VITALS: BP 198/65
[2019-11-10 08:02] LABS: INR 1.34 (0.85-1.17); PROTIME 16.5 SECONDS (11.6-15.0)
[2019-11-10 08:04] LABS: ANION GAP 14.6 mmol/L (8-16); CALCIUM 8.8 mg/dL (8.5-10.1); CARBON DIOXIDE 22.1 mmol/L (21.0-32.0); POTASSIUM - SERUM 3.7 mmol/L (3.5-5.1)
--- NOTE | 2019-11-10 14:54 | NUR ---
CURRENTLY SITTING UP IN WC IN ROOM. SLIDE BOARD AND X2 MAX ASST TO TRANSFER PT. HE C/O INCREASED PAIN TO BOTH FEET. TREMORS TO BUE NOTED, WORSE IN RUE. BUTTOCKS IS GETTING RED, SHEELA APPLIED AND TEACHING ON TURNING Q2 AT LEAST 30 DEGREES. CALL LIGHT IN REACH
--- NOTE | 2019-11-10 20:00 | NUR ---
PATIENT RECEIVED LAYING ON RIGHT SIDE OFF BUTTOCKS. ASSESSMENT & VITAL SIGNS DONE. BILATERAL LEGS & FEET PAINFUL WHEN TOUCHED. CALL LIGHT & URINAL WITHIN REACH. WILL CONTINUE TO MONITOR.
[2019-11-10 20:17] VITALS: BP 162/60
--- NOTE | 2019-11-10 22:00 | NUR ---
PATIENT USED CALL LIGHT FOR ASSIST. PATIENT ATTEMPT TO USE URINAL RESULTED IN PATIENT SPILLING URINE IN BED. 2 PERSON ASSIST CHANGING PATIENT & CLEANING HIM. CALMOSEPTINE APPLIED TO SCROTUM, BUTTOCKS. LEGS ELEVATED ON PILLOW. WEDGE UNDER PATIENT LEFT SIDE. BED LOW. CALL LIGHT WITHIN REACH. WILL CONTINUE TO MONITOR.
--- NOTE | 2019-11-10 22:30 | NUR ---
PATIENT USED CALL LIGHT. PATIENT WANTED SANDWICH. THIS NURSE SETUP SANDWICH & DRINK FOR PATIENT. CALL LIGHT WITHIN REACH. WILL CONTINUE TO MONITOR.
--- NOTE | 2019-11-11 01:03 | NUR ---
PATIENT HAD INCONTINENT VOID. PATIENT CLEANED & CHANGED WITH 2 PERSON ASSIST. PATIENT WEDGE UNDER RIGHT SIDE. PATIENT LAYING ON RIGHT SIDE. IV DOXY CONTINUES PER ORDER IN LEF TFOREARM. NO ADVERSE REACTION AR THIS TIME. BED LOW. URINAL & CALLIGHT WITHIN REACH. WILL CONTINUE TO MONITOR.
--- NOTE | 2019-11-11 02:37 | NUR ---
I have reviewed this patient and I concur with the Shift Assessment completed by the Licensed Practical Nurse today this shift.
--- NOTE | 2019-11-11 03:57 | NUR ---
PATIENT EYES CLOSED. RESPIRATIONS 18 & EVEN. NO ADVERSE REACTION TO IV DOXY 100 AT THIS TIME. BED LOW. CALL LIGHT WITHIN REACH. WILL CONTINUE TO MONITOR.
[2019-11-11 07:07] LABS: INR 1.31 (0.85-1.17); PROTIME 16.2 SECONDS (11.6-15.0)
[2019-11-11 08:00] VITALS: BP 124/68
--- NOTE | 2019-11-11 12:13 | NUR ---
IN THERAPY. MAX ASST X2 TO TRANSFER AND STAND.
--- NOTE | 2019-11-11 20:10 | NUR ---
PATIENT RECEIVED SITTING UP IN BED. ASSESSMENT & VITAL SIGNS DONE. BED ALARM ON. PATIENT CONFUSED ABOUT PLACE & TIME. LEGS ELEVATED ON PILLOW. BED LOW. CALL LIGHT WITHIN REACH. WILL CONTINUE TO MONITOR.
[2019-11-11 20:47] VITALS: BP 155/51
--- NOTE | 2019-11-12 05:23 | NUR ---
I have reviewed this patient and I concur with the Shift Assessment completed by the Licensed Practical Nurse today this shift.
[2019-11-12 07:03] LABS: ANION GAP 13.7 mmol/L (8-16); CALCIUM 8.1 mg/dL (8.5-10.1); CARBON DIOXIDE 21.8 mmol/L (21.0-32.0); CREATININE - SERUM 3.8 mg/dL (0.6-1.3); INR 1.45 (0.85-1.17); PROTIME 17.5 SECONDS (11.6-15.0)
[2019-11-12 07:14] LABS: POTASSIUM - SERUM 4.5 mmol/L (3.5-5.1)
[2019-11-12 08:00] VITALS: BP 137/52
[2019-11-12 10:53] LABS: URIC ACID 8.3 mg/dL (2.6-7.2)
--- NOTE | 2019-11-12 12:23 | NUR ---
RESTING QUIETLY IN BED. IS STILL CONFUSED. IS NOW INCONT OF URINE. SEVERE TREMORS NOTED TO BUE. IV NS INFUSING TO LEFT FA ORDERED. MAX ASST WITH ALL TASKS NEEDED. CALL LIGHT IN REACH
--- NOTE | 2019-11-12 16:18 | NUR ---
DTR VISITING. PT HAS NS GOING AT 50ML/HR. HE IS INCONT AND GETS CONFUSED ABOUT HIS SURROUNDINGS.
--- NOTE | 2019-11-12 17:47 | NUR ---
SITTING UP IN BED EATING SUPPER. STILL HAS URGE INCONT BUT WAS ABLE TO VOID IN URINAL WITH ASST. BUE TREMORS CAUSE HIM TO SPILL MOST THINGS. DTR VISITED TODAY.
[2019-11-12 20:00] VITALS: BP 148/53
--- NOTE | 2019-11-12 20:25 | NUR ---
PATIENT RECEIVED SITTING UP IN BED. TURNED TO RIGHT SIDE. IV NS 50 ML/HR ON GOING PER ORDER. FEET ELEVATED ON PILLOW. ASSESSMENT & VITAL SIGNS DONE. NO C/O PAIN OR DISTRESS AT THIS TIME. WILL CONTINUE TO MONITOR.
--- NOTE | 2019-11-13 02:56 | NUR ---
I have reviewed this patient and I concur with the Shift Assessment completed by the Licensed Practical Nurse today this shift.
--- NOTE | 2019-11-13 04:50 | NUR ---
PATIENT BED PADS CHANGED,INCONTINENCE OF URINE. MEPIPLEX APPLIED TO OPEN AREA TO UPPER BUTTOCKS. PATIENT TOLERATED IT WELL. BED LOW. CALL LIGHT, URINAL & PHONE WITHIN REACH. WILL CONTINUE TO MONITOR.
[2019-11-13 07:21] LABS: INR 1.73 (0.85-1.17); PROTIME 20.1 SECONDS (11.6-15.0)
[2019-11-13 07:23] LABS: ANION GAP 13.7 mmol/L (8-16); CALCIUM 8.2 mg/dL (8.5-10.1); CARBON DIOXIDE 21.9 mmol/L (21.0-32.0); CREATININE - SERUM 3.2 mg/dL (0.6-1.3); POTASSIUM - SERUM 4.6 mmol/L (3.5-5.1)
[2019-11-13 07:44] LABS: BASOPHILS 0.5 % (0-2); EOSINOPHILS 2.4 % (0-7); HEMATOCRIT 33.3 % (42.0-54.0); HEMOGLOBIN 10.8 g/dL (13.5-17.5); IMMATURE GRANULOCYTES 0.3 % (0-5); LYMPHOCYTES 8.9 % (15-50); MCH 29.8 pg (26.0-34.0); MCHC 32.4 g/dL (31.0-37.0); MCV 91.7 fL (80.0-100.0); MEAN PLATELET VOLUME 9.4 fL (7.4-10.4); MONOCYTES 8.2 % (2-11); NEUTROPHILS 79.7 % (40-80); RBC 3.63 10x6/uL (4.20-6.10); RDW 13.3 % (11.5-14.5); WBC 9.9 10x3/uL (4.8-10.8)
[2019-11-13 07:48] LABS: PLATELET COUNT 267 10x3/uL (130-400)
[2019-11-13 08:32] VITALS: BP 154/58
--- NOTE | 2019-11-13 09:44 | RHP ---
PATIENT: REMY JAMES MEDICAL RECORD: [id number] ACCOUNT: [id number] LOCATION:[facility]1118 : 38 ADMISSION DATE: 11/08/19 REHABILITATION HISTORY AND PHYSICAL EXAMINATION POST ADMISSION PHYSICIAN EXAMINATION ADMITTING DIAGNOSIS: Disuse myopathy. HISTORY OF PRESENT ILLNESS: The patient is an 79-year-old gentleman with reported history of CVA, dyslipidemia, hypertension, coronary artery bypass grafting, got a history of chronic anticoagulation secondary to aortic valve problems. The patient stated that he began having increased erythema and pain of his left foot about a week prior to admit, reported that he had claudication type symptoms, worse on the left than on the right. He was on warfarin and Plavix at home. Interventional radiology was consulted. Nephrology was also consulted secondary to chronic kidney disease. He had an arteriogram on 11/02, he complained of increasing pain in his lower extremities since procedure. He was started on Neurontin. He has also continued to have some elevations with his BUN and creatinine and elevated blood pressures. He has been participating in physical and occupational therapy during her stay and been progressing slowly. He needs to be monitored closely for new vascularization to his lower extremity, receiving anticoagulation therapy, IV antibiotics, monitoring surgical wound healing, also watching his blood sugars closely. He needs some medication adjustments. He is also on chronic anticoagulation. He has got proximal muscle weakness, balance deficits, decreased activity tolerance, impaired mobility, decreased range of motion, decreased strength, gait disturbance, he has got limited safety awareness. He is a medical complex and risk for falls. The patient has low endurance. He has really got inability to care for himself at this time. These are all barriers to his discharge home. 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 He was independent with ADLs and impaired mobility prior to this. He is currently set up for max assist for his ADLs, mod to max assist for mobility. His family would like for him to return home at close to his prior level of functioning as better. COMORBIDITIES: In this patient include peripheral vascular disease, weakness, elevated creatinine, cellulitis, anemia, history of coronary artery bypass grafting, history of CVA, dyslipidemia, chronic anticoagulation, diabetes, chronic back pain. PAST MEDICAL HISTORY: Significant for CVA, glaucoma, history of diabetes, hypertension, pacemaker placement, stents and angioplasty in the past, coronary artery disease. He has got an aortic valve that is mechanical, so he is on chronic anticoagulation for this. Dyslipidemia, arthritis, chronic back pain, insomnia, history of tobacco use. PAST SURGICAL HISTORY: Includes pacemaker, defibrillator, shoulder surgery, aortic valve replacement, coronary artery bypass grafting, stent placement. ALLERGIES: No known drug allergies. CURRENT MEDICATIONS: Include warfarin 2.5 mg daily, he is on Floranex daily, he is on Calmoseptine ointment as needed, he is on isosorbide 30 mg daily, he is on Uloric 80 mg daily, colchicine 0.6 mg daily, Plavix 75 mg daily, vitamin D 1000 units daily, he is on Rocephin 1 gram daily, he is on atorvastatin 40 mg daily, HISTORY AND PHYSICAL [id number] ERIKAREMY vitamin C 500 mg daily, doxycycline 100 mg every 12 hours, Restoril 30 mg at bedtime, nifedipine 90 mg daily, he is on metoprolol 100 mg b.i.d., he is on Xalatan eyedrops daily, he is on Humalog, he is on low resistant sliding scale, he is on Lantus 17 units daily, Neurontin 300 mg b.i.d., Cardura 1 mg b.i.d., Catapres 0.3 mg b.i.d., furosemide 40 mg b.i.d., he is on a glucose replacement protocol at this time, [place] 5/325 one tab every 4 to 6 hours p.r.n. and Tylenol as needed. HABITS: Does have a history of tobacco use. FAMILY HISTORY: Noncontributory. SOCIAL HISTORY: The patient hopes to return back home and get back to his prior level of functioning. REVIEW OF SYSTEMS: GENERAL: Does complain of weakness and fatigue. HEENT: Denies cold, cough, or congestion. CARDIOVASCULAR: Denies any chest pain. PHYSICAL EXAMINATION: VITAL SIGNS: Stable, afebrile. GENERAL: An elderly gentleman in no acute distress upon exam. HEENT: Normocephalic and atraumatic. Mucosa moist. NECK: Supple. No lymphadenopathy. LUNGS: Clear in upper dias. No wheezing or rales. HEART: Regular rate and rhythm. Does have a mid systolic click. ABDOMEN: Soft, benign, and nondistended. Positive bowel sounds times 4. EXTREMITIES: No clubbing, cyanosis. Does have some post-surgical changes, but nothing out of the ordinary. NEUROLOGIC: Does have proximal muscle weakness, especially in quads of his thighs. LABORATORY DATA: White count is 10,000, H&H of 11.6 and 34.9, platelet count is 201. Sodium 138, potassium 4.0, BUN and creatinine of 68 and 3.2 and blood sugar is noted to be 149. 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 The patient has potential to make improvement. We instituted the following multidisciplinary therapies including, but not limited to physical, occupational, respiratory, speech, nutritional services, prosthetics and orthotics. Given his complex medical condition and risks for more complications, rehabilitation services cannot be provided at a low level of care such as skilled nurse facility. PLAN: 1. Admit to [facility] for inpatient therapy to include the following disciplines; A. Physical therapy to improve gait, all transfer skills and bed mobility to a modified independent level. B. Occupational therapy to improve activities of daily living. C. Case management to help with discharge planning and placement options. D. Nutrition to assist with nutritional needs. E. Rehabilitation nursing to assist in monitoring the patient's underlying HISTORY AND PHYSICAL [id number] REMY JAMES medical conditions and to assist with any type of bowel or bladder management. 2. The patient's current medication and medical care will be continued. 3. Placed on standard fall precautions. 4. The patient's estimated length of stay is approximately 7-10 days. 5. We will discuss this patient during care team staff meeting this week. TRANSINT:[id number] Voice Confirmation ID: [id number] DOCUMENT ID: [id number] RANDY notes whether there has been none or any medical/functional change since admission: - No change since preadmission screen. RANDY attests patient continues to be appropriate for IRF: - Continues to be appropriate. EMILIA RICHARDSON MD at 0944 CC: [id number] DICTATION DATE: 11/09/19 0857 JEWELRY INSPECTOR: 11/09/19 0944 ADM IN [place] [id number] [place] [address]
--- NOTE | 2019-11-13 10:30 | NUR ---
SPILLS URINAL WHEN HE TRIES TO USE IT DUE TO SEVERE BUE TREMORS. MEPILEX TO BUTTOCKS. DRY SKIN TO FACE WHERE DTR SHAVED HIM YESTERDAY. DTR IS VISITING THIS MORNING WAITING ON DR RICHARDSON.
--- NOTE | 2019-11-13 16:28 | NUR ---
Nutrition Follow-up: CKD, no HD at this time. Diet: Renal ADA PO intake: ~27% average x last 6 meals. He states that his appetite is "okay." He denies needs from dietary at this time. He is willing to try Suplena with meals. Noted festus appeared red and swollen, cracking around lips. Appears like a nutrition deficiency. Last BM: "yesterday" per patient report. Wt: 200# (11/09/19) Meds noted: coumadin, vit D, vit C, SSI, lantus, lasix Labs noted: BUN 98(H), Cr 3.2(H), GFR 20(L) MD may consider liberating diet to Diabetic/Low sodium as patient's K and PO4 have remained WNL. Will add Suplena (lower protein) oral nutrition supplement TID. Encouraged PO intake. RD following.
--- NOTE | 2019-11-13 20:34 | NUR ---
AWAKE AND RESTING IN BED WITH NO ACUTE DISTRESS NOTED. SALINE LOCK TO LA INTACT. CALL LIGHT IN REACH.
[2019-11-13 21:14] VITALS: BP 152/60
--- NOTE | 2019-11-14 00:15 | NUR ---
DAUGHTER CALLED AND STATED HER DAD CALLED HER AND STATED HE DIDNT KNOW WHERE HE WAS. I TOLD HER I WOULD GO AND CHECK ON HIM. PATIENT NOTED AWAKE IN BED AND SAID " I DONT KNOW WHERE I AM" I REMINDED HIM HE WAS [facility] IN REHAB. HE STATED OKAY. I SPENT SOME TIME GIVING HIM SOME REMINDERS AND REPOSTIONING HIM. HE C/O PAIN IN BACK. MEDICATED FOR PAIN SEE MAR. SEEMS TO UNDERSTAND NOW WHERE HE IS. WILL MONITOR.
--- NOTE | 2019-11-14 05:32 | NUR ---
INCONTINENCE CARE GIVEN AND LINENS CHANGED. TURNED AND REPOSITIONED. HE IS ABLE TO SAY WHERE HE IS THIS MORNING. ORIENTED TO PERSON PLACE AND TIME FOR NOW. ASK WHAT TIME IS BREAKFAST. BLOOD SUGAR 100.
--- NOTE | 2019-11-14 08:00 | NUR ---
SHIFT ASSMT COMPLETED.
[2019-11-14 08:04] VITALS: BP 157/56
[2019-11-14 09:36] LABS: INR 2.33 (0.85-1.17); PROTIME 25.2 SECONDS (11.6-15.0)
--- NOTE | 2019-11-14 12:00 | NUR ---
EATING LUNCH.UP IN WC.
[2019-11-14 20:02] VITALS: BP 146/54
--- NOTE | 2019-11-14 20:02 | NUR ---
PT IN BED CLIPPING NAILS, NO NEEDS NOTED, RESPIRATIONS EVEN/UNLABORED, FALL PRECAUTIONS IN PLACE, FLUIDS/CALL LIGHT WITHIN REACH
[2019-11-15 00:43] LABS: BILIRUBIN NEGATIVE (NEGATIVE); KETONE NEGATIVE (NEGATIVE); NITRITE NEGATIVE (NEGATIVE); UROBILINOGEN NORMAL (NORMAL)
[2019-11-15 00:53] LABS: PRO/CRE RATIO URINE 1.4 mg/g; PROTEIN - URINE 102.4 mg/dL (0.0-11.9)
--- NOTE | 2019-11-15 04:20 | NUR ---
PT AWAKE WATCHING TV, NO NEEDS NOTED, RESPIRATIONS EVEN/UNLABORED, FALL PRECAUTIONS IN PLACE, FLUIDS/CALL LIGHT WITHIN REACH
[2019-11-15 06:37] LABS: BASOPHILS 0.3 % (0-2); EOSINOPHILS 4.1 % (0-7); HEMATOCRIT 32.9 % (42.0-54.0); HEMOGLOBIN 10.7 g/dL (13.5-17.5); IMMATURE GRANULOCYTES 0.3 % (0-5); LYMPHOCYTES 19.2 % (15-50); MCH 30.1 pg (26.0-34.0); MCHC 32.5 g/dL (31.0-37.0); MCV 92.4 fL (80.0-100.0); MEAN PLATELET VOLUME 9.3 fL (7.4-10.4); MONOCYTES 10.8 % (2-11); NEUTROPHILS 65.3 % (40-80); PLATELET COUNT 265 10x3/uL (130-400); RBC 3.56 10x6/uL (4.20-6.10); RDW 13.5 % (11.5-14.5)
[2019-11-15 07:15] LABS: INR 2.69 (0.85-1.17); PROTIME 28.2 SECONDS (11.6-15.0)
[2019-11-15 07:34] LABS: CALCIUM 8.4 mg/dL (8.5-10.1); CARBON DIOXIDE 21.8 mmol/L (21.0-32.0); CREATININE - SERUM 2.7 mg/dL (0.6-1.3); POTASSIUM - SERUM 4.8 mmol/L (3.5-5.1)
[2019-11-15 08:00] VITALS: BP 148/55
--- NOTE | 2019-11-15 14:03 | NUR ---
MARTIN LOMBARDI: PATIENT DAUGHTER ATTENDED THE MEETING. HER QUESTIONS AND CONCERNS WERE ADDRESSED. PATIENTS TENATIVE DC DATE IS 11/24/19. WILL CONTINUE TO FOLLOW WITH PATIENT.PATIENT WILL BE RA AT NEXT MEETING.
--- NOTE | 2019-11-15 19:34 | NUR ---
PT IN BED, WATCHING TV, RESPIRATIONS EVEN/UNLABORED, NO IMMEDIATE NEEDS NOTED, FALL PRECAUTIONS IN PLACE, FLUIDS/CALL LIGHT WITHIN REACH
[2019-11-15 21:41] VITALS: BP 157/60
[2019-11-16 07:37] LABS: INR 2.8 (0.85-1.17); PROTIME 29.1 SECONDS (11.6-15.0)
[2019-11-16 07:44] VITALS: BP 150/58
--- NOTE | 2019-11-16 12:39 | NUR ---
SITTING UP IN WC IN ROOM EATING LUNCH. IS MORE ALERT AND AWAKE TODAY. C/O BEING TIRED BUT DENIES INCREASED PAIN OR SOB. CALL LIGHT IN REACH
--- NOTE | 2019-11-16 13:44 | NUR ---
SITTING UP IN WC IN THERAPY ROOM. PAIN MEDS GIVEN REQUESTED. HE SAID HE FEET ARE HURTING.
--- NOTE | 2019-11-16 14:16 | NUR ---
Nutrition Follow-up: Diet: Renal ADA + Suplena TID PO intake: ~10-25% average. He states that his appetite is "better." He has been drinking Suplena TID. He does not like the diet that he is on. States that he could eat better if he had more varity. Last BM: none recorded since admit x 8 days. Wt: 200# (11/09/19) Meds noted: coumadin, SSI, lantus, lasix Labs noted: BUN 87(H), Cr 2.7(H), GFR 24(L), POC Glu 105(WNL, K 4.8(WNL), PO4 3.1(WNL)- 11/06/19 Skin: PU to buttocks Recommend: -Liberate diet to Diabetic, low sodium as K and PO4 have been WNL. Will continue to monitor labs -Continue Suplena TID with meals -Encouraged PO intake -RD following
--- NOTE | 2019-11-16 20:04 | NUR ---
PT ASLEEP NO IMMEDIATE NEEDS NOTED, RESPIRATIONS EVEN/UNLABORED, FALL PRECAUTIONS IN PLACE, FLUIDS/CALL LIGHT WITHIN REACH
[2019-11-17 07:32] LABS: EOSINOPHILS 4.5 % (0-7); HEMATOCRIT 34.5 % (42.0-54.0); HEMOGLOBIN 11.3 g/dL (13.5-17.5); IMMATURE GRANULOCYTES 0.3 % (0-5); LYMPHOCYTES 20.6 % (15-50); MCH 30.5 pg (26.0-34.0); MCHC 32.8 g/dL (31.0-37.0); MEAN PLATELET VOLUME 9.5 fL (7.4-10.4); MONOCYTES 6.8 % (2-11); NEUTROPHILS 66.8 % (40-80); PLATELET COUNT 313 10x3/uL (130-400); RBC 3.71 10x6/uL (4.20-6.10); RDW 13.6 % (11.5-14.5); WBC 6.2 10x3/uL (4.8-10.8)
[2019-11-17 07:33] LABS: ANION GAP 13.3 mmol/L (8-16); CALCIUM 8.7 mg/dL (8.5-10.1); CARBON DIOXIDE 21.3 mmol/L (21.0-32.0); CREATININE - SERUM 2.4 mg/dL (0.6-1.3); POTASSIUM - SERUM 4.6 mmol/L (3.5-5.1)
[2019-11-17 07:44] LABS: INR 2.31 (0.85-1.17)
[2019-11-17 08:29] VITALS: BP 182/68
--- NOTE | 2019-11-17 15:30 | NUR ---
LAYING DOWN IN BED RESTING QUIETLY. NO S/S DISTRESS NOTED CALL LIGHT IN REACH
[2019-11-17 20:00] VITALS: BP 166/55
--- NOTE | 2019-11-17 20:00 | NUR ---
AWAKE AND ALERT. RESTING IN BED WITH RESPRIATIONS UNLABORED. CONTINUES TO C/O SOME PAIN IN LEGS AND SHOULDER. WILL MEDICATED PRN. CALL LIGHT IN REACH.
--- NOTE | 2019-11-18 00:13 | NUR ---
RESTING QUIETLY WITH EYES CLOSED AND NO DISTRESS NOTED. CALL LIGHT IN REACH.
--- NOTE | 2019-11-18 05:36 | NUR ---
QUIET HOURS. NO ACUTE CHANGES IN CONDITION THIS SHIFT. RESTING IN BED WITH NO DISTRESS NOTED.
[2019-11-18 08:00] VITALS: BP 180/55
[2019-11-18 08:31] LABS: INR 2.24 (0.85-1.17); PROTIME 24.5 SECONDS (11.6-15.0)
--- NOTE | 2019-11-18 14:10 | NUR ---
HERE TO SEE.ORDERS OBTAINED AND WILL FOLLOW .WND CARE COMPLETED.
--- NOTE | 2019-11-18 19:40 | NUR ---
PT RESTING IN BED. HE REPORTS FEELING DEPRESSED BECAUSE OF THE WOUNDS ON HIS FEET. ENCOURAGED HIM TO EXPRESS THIS TO HIS DOCTOR AND HE STATED THAT HE WOULD. HE DENIES PAIN OR NEEDS. URINAL EMPTIED. VSS. HEEL PROTECTORS PLACED ON BILATERAL HEELS. BED IS LOW AND CALL LIGHT WITHIN REACH.
[2019-11-18 20:40] VITALS: BP 168/62
[2019-11-19 06:30] LABS: BASOPHILS 0.2 % (0-2); EOSINOPHILS 1.9 % (0-7); HEMATOCRIT 33.9 % (42.0-54.0); HEMOGLOBIN 10.9 g/dL (13.5-17.5); IMMATURE GRANULOCYTES 0.1 % (0-5); LYMPHOCYTES 13.1 % (15-50); MCH 30.3 pg (26.0-34.0); MCHC 32.2 g/dL (31.0-37.0); MCV 94.2 fL (80.0-100.0); MEAN PLATELET VOLUME 9.3 fL (7.4-10.4); MONOCYTES 4.6 % (2-11); NEUTROPHILS 80.1 % (40-80); PLATELET COUNT 306 10x3/uL (130-400); RDW 13.6 % (11.5-14.5); WBC 8.4 10x3/uL (4.8-10.8)
[2019-11-19 06:41] LABS: ANION GAP 11.6 mmol/L (8-16); CALCIUM 8.8 mg/dL (8.5-10.1); CARBON DIOXIDE 22.8 mmol/L (21.0-32.0); CREATININE - SERUM 2.1 mg/dL (0.6-1.3); POTASSIUM - SERUM 4.4 mmol/L (3.5-5.1); URIC ACID 4.9 mg/dL (2.6-7.2)
[2019-11-19 06:42] LABS: INR 2.11 (0.85-1.17); PROTIME 23.3 SECONDS (11.6-15.0)
[2019-11-19 08:00] VITALS: BP 169/59
--- NOTE | 2019-11-19 08:00 | NUR ---
SHIFT ASSMT COMPLETED.
[2019-11-19 20:00] VITALS: BP 173/66
--- NOTE | 2019-11-19 20:00 | NUR ---
PATIENT IS ALERT/ORIENT. IN BED WATCHING T.V. CALL LIGHT WITHIN REACH. VOICES NO NEEDS AT THIS TIME.
--- NOTE | 2019-11-20 02:15 | NUR ---
THIS NURSE ROUNDING ON PATIENTS. PATIENT IN BED WITH EYES CLOSED. CALL LIGHT WITHIN REACH. NURSE EMPTIED PATIENTS URINAL
--- NOTE | 2019-11-20 03:26 | NUR ---
I have reviewed this patient and I concur with the Shift Assessment completed by the Licensed Practical Nurse today this shift.
--- NOTE | 2019-11-20 04:35 | NUR ---
BILATERAL POSTERIOR HEELS BLISTERS CLEANED WITH WOUND AGRICULTURAL REAL ESTATE AGENT. PATTED DRY. BETADINE WET TO DRY APPLIED. ABD PADDING APPLIED. CLEAN SOCKS AND HEEL PROTECTORS APPLIED
[2019-11-20 07:20] LABS: BASOPHILS 0.5 % (0-2); EOSINOPHILS 2.3 % (0-7); HEMATOCRIT 36.1 % (42.0-54.0); HEMOGLOBIN 11.5 g/dL (13.5-17.5); IMMATURE GRANULOCYTES 0.2 % (0-5); LYMPHOCYTES 18.3 % (15-50); MCH 29.7 pg (26.0-34.0); MCHC 31.9 g/dL (31.0-37.0); MCV 93.3 fL (80.0-100.0); MEAN PLATELET VOLUME 9.3 fL (7.4-10.4); MONOCYTES 5.2 % (2-11); NEUTROPHILS 73.5 % (40-80); PLATELET COUNT 315 10x3/uL (130-400); RBC 3.87 10x6/uL (4.20-6.10); RDW 13.5 % (11.5-14.5); WBC 8.1 10x3/uL (4.8-10.8)
[2019-11-20 07:25] LABS: INR 1.69 (0.85-1.17); PROTIME 19.7 SECONDS (11.6-15.0)
[2019-11-20 07:28] LABS: ANION GAP 13.3 mmol/L (8-16); CALCIUM 8.7 mg/dL (8.5-10.1); CARBON DIOXIDE 24.1 mmol/L (21.0-32.0); POTASSIUM - SERUM 4.4 mmol/L (3.5-5.1)
[2019-11-20 08:00] VITALS: BP 169/61
--- NOTE | 2019-11-20 15:49 | NUR ---
RESTING QUIETLY IN BED, TV ON. DENIES INCREASED PAIN TO BLE. STILL USING URINAL TO VOID. CALL LIGHT IN REACH
--- NOTE | 2019-11-20 20:00 | NUR ---
AWAKE AND ALERT. RESTING IN BED WITH RESPIRATIONS UNLABORED. MEPILEX DRESSING INTACT TO COCCYX AREA. BILATERAL HEEL DRESSSINGS DRY AND INTACT. C/O PAIN IN FEET. WILL TREAT WITH PRN PAIN MEDICATION WITH HS MEDICATIONS. CALL LIGHT IN REACH.
[2019-11-20 20:29] VITALS: BP 151/54
--- NOTE | 2019-11-21 00:28 | NUR ---
SLEEPING WITH RESPIRATIONS UNLABORED. NO DISTRESS NOTED.
--- NOTE | 2019-11-21 01:28 | NUR ---
SPILLED URINAL ON SELF TRYING TO USE IT IN BED. CALLED FOR ASSISTANCE. SMALL BLOOD CLOT AND SMALL AMOUNT BRIGHT RED BLOOD COMING FROM PENIS NOTED. AREA CLEANED AND BED LINENS CHANGED. WILL CONTINUE TO MONITOR.
--- NOTE | 2019-11-21 02:21 | NUR ---
URINATED AGAIN AND HAD ANOTHER SMALL BLOOD CLOT PASS. CLOT WAS "ZAYRA" SIZE. MESSAGE LEFT FOR DR RICHARDSON ON ROUNDING SHEET. WILL CONTINUE TO MONITOR.
[2019-11-21 05:13] LABS: INR 1.5 (0.85-1.17); PROTIME 17.9 SECONDS (11.6-15.0)
--- NOTE | 2019-11-21 06:49 | NUR ---
QUEIT HOURS. NO ACUTE CHANGES IN CONDITION THIS SHIFT. RESTING IN BED WITH NO DISTRESS NOTED.
[2019-11-21 08:00] VITALS: BP 162/63
[2019-11-21 13:46] LABS: BILIRUBIN NEGATIVE (NEGATIVE); KETONE NEGATIVE (NEGATIVE); NITRITE NEGATIVE (NEGATIVE); UROBILINOGEN NORMAL (NORMAL)
[2019-11-21 13:47] LABS: BACTERIA FEW /hpf (NONE SEEN); EPITHELIAL CELLS RARE /hpf (0-5); WHITE CELLS - URINE NSEEN /hpf (0-5)
--- NOTE | 2019-11-21 18:39 | NUR ---
DR RICHARDSON NOTIFIED AGAIN THAT PT IS STILL PASSING BLOOD THROUGH PENIS AND DOES NOT APPEAR TO BE SLOWING DOWN. HE ORDERED STAT CBC AND HAD DC/D ONE MED WHEN THIS NURSE NOTIFIED HIM EARLIER TODAY OF BLOODY CLOTS FROM PENIS.
[2019-11-21 19:11] LABS: BASOPHILS 0.6 % (0-2); EOSINOPHILS 2.9 % (0-7); HEMATOCRIT 35.3 % (42.0-54.0); HEMOGLOBIN 11.4 g/dL (13.5-17.5); IMMATURE GRANULOCYTES 0.3 % (0-5); LYMPHOCYTES 21.4 % (15-50); MCH 30.3 pg (26.0-34.0); MCHC 32.3 g/dL (31.0-37.0); MCV 93.9 fL (80.0-100.0); MEAN PLATELET VOLUME 9.2 fL (7.4-10.4); MONOCYTES 7.1 % (2-11); NEUTROPHILS 67.7 % (40-80); PLATELET COUNT 276 10x3/uL (130-400); RBC 3.76 10x6/uL (4.20-6.10); RDW 13.6 % (11.5-14.5); WBC 6.7 10x3/uL (4.8-10.8)
--- NOTE | 2019-11-21 19:55 | NUR ---
CALLED AND VOICEMAIL LEFT FOR DR RICHARDSON REGARDING CBC RESULTS FOR PATIENT. AWAITING RETURN CALL.
--- NOTE | 2019-11-21 21:00 | NUR ---
AWAKE AND ALERT. RESTING IN BED WITH NO DISTRESS NOTED. MEDICATED FOR PAIN. USES URINAL WITHOUT DIFFICULTY. CONTINUES TO HAVE A SMALL AMOUNT OF BLOOD OOZING FROM PENIS AND SMALL BLOOD CLOTS PASSED WHEN HE VOIDS. WILL CONTINUE TO MONITOR CLOSELY.
[2019-11-21 21:12] VITALS: BP 171/45
--- NOTE | 2019-11-22 02:57 | NUR ---
AWAKE AND RESTING IN BED. BLEEDING FROM PENIS HAS DECREASED SIGNIFICANTLY WITH ONLY A SMALL 4CM SPOT ON PAD. NO BLOOD CLOTS NOTED. NO ACUTE DISTRESS NOTED. CALL LIGHT IN REACH.
[2019-11-22 06:45] LABS: BASOPHILS 0.7 % (0-2); EOSINOPHILS 2.3 % (0-7); HEMATOCRIT 34.9 % (42.0-54.0); HEMOGLOBIN 11.3 g/dL (13.5-17.5); IMMATURE GRANULOCYTES 0.1 % (0-5); LYMPHOCYTES 19.6 % (15-50); MCH 30.2 pg (26.0-34.0); MCHC 32.4 g/dL (31.0-37.0); MCV 93.3 fL (80.0-100.0); MEAN PLATELET VOLUME 9.5 fL (7.4-10.4); MONOCYTES 5.1 % (2-11); NEUTROPHILS 72.2 % (40-80); PLATELET COUNT 307 10x3/uL (130-400); RBC 3.74 10x6/uL (4.20-6.10); RDW 13.5 % (11.5-14.5); WBC 7.3 10x3/uL (4.8-10.8)
[2019-11-22 07:11] LABS: CALCIUM 8.6 mg/dL (8.5-10.1); CARBON DIOXIDE 25.1 mmol/L (21.0-32.0); CREATININE - SERUM 2.1 mg/dL (0.6-1.3); POTASSIUM - SERUM 4.1 mmol/L (3.5-5.1); URIC ACID 4.3 mg/dL (2.6-7.2)
[2019-11-22 08:00] VITALS: BP 150/53
--- NOTE | 2019-11-22 14:43 | NUR ---
Nutrition Follow-up: Diet: Diabetic, low sodium + Suplena TID PO intake: ~50% average x last 9 meals. He was in therapy at time of RD visit. He had eaten 100% of lunch today. He is drinking Suplena. Last BM: none recorded since admit (x 14 days now??). Wt: 200# (11/09/19) Meds noted: lasix, prednisone, coumadin, SSI, lantus Labs noted: K 4.1(WNL), BUN 55(H), Cr 2.1(H), GFR 32(L), Glu 249(H), POC Glu 238(H) Recommend continue current diet and oral nutrition supplements. Consider bowel regimen if Pt is constipated to hopefully help with appetite. RD following.
--- NOTE | 2019-11-22 15:40 | NUR ---
CARE TEAM MEETING: PATIENT DAUGHTER ATTENDED THE MEETING.HER QUESTIONS AND CONCERNS WERE ADDRESSED. TENATIVE DC DATE IS 11/24/19. FAMILY AND PATIENT WILL DISCUSS POSSIBLY DISCHARGING TO A SNF. WILL CONTINUE TO FOLLOW WITH PATIENT.
--- NOTE | 2019-11-22 19:58 | NUR ---
RECEIVED PT LYING IN BED ON RIGHT SIDE AWAKE. ALERT AND ORIENTED X4. C/O LOWER BACK AND BILATERAL HEEL PAIN 6/10 REQUESTS PAIN MEDS WITH HS MEDS. HEEL PROTECTORS ON. NO SIGNS OF ACUTE DISTRESS NOTED. CALL LIGHT AND WATER WITHIN REACH. FALL PRECAUTIONS IN PLACE. CPOC
[2019-11-22 20:47] VITALS: BP 154/45
--- NOTE | 2019-11-23 01:42 | NUR ---
PT LYING IN BED ON RIGHT SIDE EYES CLOSED RESTING COMFORTABLY. RR EVEN AND UNLABORED. EMPTIED URINAL 200ML CLEAR YELLOW URINE. CALL LIGHT AND WATER WITHIN REACH. FALL PRECAUTIONS IN PLACE. WILL CONTINUE TO MONITOR
--- NOTE | 2019-11-23 03:58 | NUR ---
PT LYING IN BED ON LEFT SIDE EYES CLOSED RESTING. RR EVEN AND UNLABORED. CALL LIGHT WITHIN REACH. FALL PRECAUTINOS IN PLACE. CPOC
[2019-11-23 08:00] VITALS: BP 123/50
--- NOTE | 2019-11-23 19:22 | NUR ---
RECEIVED PT LYING IN BED ON RIGHT SIDE EYES CLOSED RESTING COMFORTABLY. EASILY AROUSED WITH VERBAL STIMULI. DENIES ANY PAIN OR NEEDS. NO SIGNS OF ACUTE DISTRESS NOTED. BILATERAL HEEL DRESSINGS INTACT CHANGED TODAY. CALL LIGHT AND URNIAL WITHIN REACH. FALL PRECAUTIONS IN PLACE. CPOC.
[2019-11-23 19:49] VITALS: BP 147/46
--- NOTE | 2019-11-24 00:50 | NUR ---
PT LYING IN BED ON RIGHT SIDE EYES CLOSED RESTING. RR EVEN AND UNLABORED. CALL LIGHT AND URNIAL WITHIN REACH. FALL PRECAUTIONS IN PLACE. CPOC
--- NOTE | 2019-11-24 03:19 | NUR ---
PT LYING IN BED EYES CLOSED RESTING QUIETLY. RR EVEN AND UNLABORED. CALL LIGHT WITHIN REACH. FALL PRECAUTIONS IN PLACE. CPOC
[2019-11-24 07:50] VITALS: BP 180/64
--- NOTE | 2019-11-24 08:02 | NUR ---
PATIENT IS ALERT/ORIENT. CALL LIGHT WITHIN REACH. VOICES NO NEEDS. PLAN TO DISCHARGE HOME TODAY
[2019-11-24] MEDS ORDERED: ISOSORBIDE MONO60 M1 PO (08:34)
[2019-11-24] MEDS ORDERED: GABAPENTIN100 MG PO (08:35)
[2019-11-24] MEDS ORDERED: LASIX40 MG PO (08:35)
[2019-11-24] MEDS ORDERED: HYDROCODON-ACE1 EA10 PO (08:35)
[2019-11-24] MEDS ORDERED: MEDROL DOSE PACK4 MG PO (08:36)
--- NOTE | 2019-11-24 08:45 | NUR ---
DR RICHARDSON INTO SEE PATIENT. NEW ORDERS FOR DISCHAGE WRITTEN
[2019-11-24] MEDS ORDERED: CELEXA10 MG PO (08:49)
--- NOTE | 2019-11-24 09:33 | NUR ---
PATIENT DISCHARGING HOME TODAY WITH FAMILY. [facility] WILL PROVIDE THERAPY AT HOME. NO NEW DME NEEDED AT THIS TIME. DR. MARQUEZ/ TRAVIS 12/01/19 @ 2:30, DR. WILLIAMSON 12/06/19 @ 2:00, MARY AVITIA APN 11/28/19 @ 11:20. SUREKHA SIGNED, IMM SERVED AND EXPLAINED ONE GIVEN TO PATIENT AND ONE FILED IN CHART.DC INSTRUCTIONS FAXED TO PCP, HOME HEALTH AND REVIEWED WITH PATIENT PER PRIMARY NURSE AND MYSELF. COMPARE DATA REVIEWED , PATIENT HAS CHOSEN [facility] DUE TO SPOUSE IS A CLIENT OF [facility].
--- NOTE | 2019-11-24 14:10 | NUR ---
DAUGHTER HERE TO TAKE PATIENT HOME. DISCHARGE INSTRUCTIONS GONE OVER WITH PATIENT AND DAUGHTER. PATIENT HELPED OUT TO CAR BY STAFF
== END 2019-11-24 15:00 | disposition home health service (06) | DRG 92 ==
LOC: D.REHAB 17:52
PROVIDERS: Internal Medicine Nephrology; ADMIT Emergency Medicine; ATTEND Emergency Medicine
DX: G72.89 Other specified myopathies (principal); N17.9 Acute kidney failure, unspecified; L03.116 Cellulitis of left lower limb; E78.5 Hyperlipidemia, unspecified; I25.10 Atherosclerotic heart disease of native coronary artery without angina pectoris; Z79.01 Long term (current) use of anticoagulants; I73.9 Peripheral vascular disease, unspecified; R53.1 Weakness; D64.9 Anemia, unspecified; Z95.1 Presence of aortocoronary bypass graft; E11.9 Type 2 diabetes mellitus without complications; G89.29 Other chronic pain; I12.9 Hypertensive chronic kidney disease with stage 1 through stage 4 chronic kidney disease, or unspecified chronic kidney disease; E11.22 Type 2 diabetes mellitus with diabetic chronic kidney disease; N18.9 Chronic kidney disease, unspecified; E79.0 Hyperuricemia without signs of inflammatory arthritis and tophaceous disease; S90.822A Blister (nonthermal), left foot, initial encounter; S90.821A Blister (nonthermal), right foot, initial encounter; X58.XXXA Exposure to other specified factors, initial encounter